=== PATIENT | female | born 1985 | race Caucasian/White ===

== ENCOUNTER 2017-12-04 19:32 | Inpatient (IN) ==
[2017-12-04] MEDS ORDERED: Ondansetron 4 MG/2 ML VIAL IVP ONE (20:25)
[2017-12-04] MEDS ORDERED: 0.9 % Sodium Chloride 1,000 ML IVC ONE ×2 (20:25→21:34)
--- NOTE | 2017-12-04 20:27 | Emergency Department Note ---
Disposition Clinical Impression: Pyelonephritis Disposition: Admitted As Inpatient Condition: Fair Time of Disposition: 22:00 General Adult HPI - General Chief complaint: ED Fever Stated complaint: fever, vomiting, side pain, headache Time Seen by Provider: 12/04/17 20:15 Source: patient Nursing Notes Reviewed: Yes Vital Signs Reviewed: Yes - History of Present Illness HPI Narrative: Ms Quigley started her period last which is 6 days ago. The next day she had some abdominal cramping on the right especially radiating up through her flank area and some nausea and began throwing up. She has done so numerous times over the weekend. Today she threw up about 6 times just before coming to the emergency department and still feels nauseated now. Regarding her urination she tells me that it has hurt to urinate and has done so for about 5 days now. She is also complaining of a headache especially when she vomits. She has had a couple of migraines in the past and these are similar but have not lasted quite as long. Some photophobia and nausea attributed to headache. She has had some cyclical vomiting issues especially when she was . This persisted and when she was not and her gallbladder was taken out in hopes that this would help her but it did not seem to. Pain Scale: 5 - Related Data Previous Rx's Medication Instructions Recorded Sulfamethoxazole/Trimeth DS 1 each PO BID #20 tablet 11/07/16 [Bactrim DS] cephALEXin [Keflex] 500 mg PO BID #20 capsule 11/07/16 Nitrofurantoin Monohyd/M-Cryst 100 mg PO BID #20 capsule 06/03/17 [Macrobid 100 mg Capsule] Ondansetron ODT [Zofran ODT] 4 mg SL Q8HR PRN #14 tab.rapdis 06/03/17 Allergies Allergy/AdvReac Type Severity Reaction Status Date / Time promethazine [From Phenergan] AdvReac Mild See Verified 06/25/16 23:36 Comments Penicillins [PCN] AdvReac See Verified 06/25/16 23:36 Comments Constitutional: Reports: fever, chills Eyes: Reports: as per HPI ENT ED: Denies: congestion Cardiovascular: Denies: dyspnea on exertion Respiratory: Denies: cough Gastrointestinal: Reports: abdominal pain, nausea, vomiting Genitourinary: Reports: dysuria Musculoskeletal: Reports: back pain Integumentary: Denies: rash Neurological: Reports: headache Endocrine: Reports: fatigue Past Medical History - Past Medical History Medical history: Reports: no medical history Psychiatric history: Reports: no psych history [employer]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 Absent: scleral icterus - ENT ENT exam: mucous membranes dry - Neck Neck exam: Present: normal inspection, full ROM. Absent: meningismus - Chest Chest inspection: Present: normal inspection, symmetric chest wall rise - Respiratory Respiratory exam: Present: normal lung sounds bilaterally. Absent: respiratory distress, wheezes, stridor - Cardiovascular Cardiovascular exam: Present: tachycardia, normal heart sounds. Absent: systolic murmur, diastolic murmur - Abdominal Exam Abdominal exam: Present: soft, normal bowel sounds. Absent: distention, guarding, rebound, rigidity Abdominal tenderness: Present: RUQ, RLQ, moderate - Extremities Exam Extremities exam: Present: normal inspection, normal capillary refill (Sluggish) . Absent: pedal edema - Back Exam Back exam: Present: CVA tenderness (R). Absent: CVA tenderness (L) - Neurological Exam Neurological exam: Present: alert - Psychiatric Psychiatric exam: Present: normal affect, normal mood - Skin Skin exam: Present: warm, dry. Absent: rash Course Vital Signs Temperature 100 F H 12/04/17 19:53 Pulse Rate 142 12/04/17 19:53 Respiratory Rate 20 12/04/17 19:53 Blood Pressure 113/79 12/04/17 19:53 O2 Sat by Pulse Oximetry 100 12/04/17 19:53 Temperature 100 F H 12/04/17 19:53 Pulse Rate 139 12/04/17 23:11 Respiratory Rate 20 12/04/17 22:38 Blood Pressure 98/60 12/04/17 23:11 O2 Sat by Pulse Oximetry 100 12/04/17 23:11 Oxygen Delivery Oxygen Delivery Room Air Medical Decision Making - MDM Narrative Medical decision making narrative: Pyelonephritis. This is the most likely explanation for her symptoms. She was given IV fluids, IV Rocephin and Zofran. K rider was completed just before transfer to the floor. She reported that her nausea was somewhat better. After IV Toradol was given she did report some relief of her headache. Just prior to transfer to the floor the second liter finished and she still did not need to urinate a second time. We will hang a third liter and when she urinates we will decrease to the 150 ML's as per the admission orders. I spoke with floor nurse will be taking care of Ms. Lobato. Because of her tachycardia persistent nausea it would be most prudent to have Ms. Lobato here in the hospital at least overnight. She does have some evidence of systemic infection but I do not believe she is frankly septic. Lactate was not elevated. Abnormality in vital signs mostly attributable to dehydration. I spoke with the covering hospitalist and presented the case. He accepted admission. She is awake alert and in no visible distress in slightly improved condition just prior to transfer to the floor. - Medical Records Medical records reviewed: Yes I reviewed the patient's medical records. - Lab Data Lab results reviewed: Yes I reviewed the patient's lab results. Result diagrams: 12/04/17 20:44 12/04/17 20:44 Lab Results 12/04/17 12/04/17 12/04/17 Range/Units 20:44 20:44 20:44 WBC 17.7 H (4.3-11.1) K/mcL RBC 4.01 (3.82-4.97) M/mcL Hgb 12.6 (11.5-15.4) g/dL Hct 36.2 (35.3-44.9) % MCV 90.3 (83.0-100.0) fL MCH 31.4 (28.0-33.3) pg MCHC 34.8 (31.6-35.5) g/dL RDW 12.5 (11.5-14.5) % Plt Count 196 (140-400) K/mcL MPV 10.5 (9.4-12.4) fL Immature Gran % 2.8 (0-4) % Seg Neutrophils % 89.8 % Lymphocytes % 3.9 % Monocytes % 3.4 % Eosinophils % 0.0 % Basophils % 0.1 % Neutrophils # 15.9 H (1.6-8.9) K/mcL Lymphocytes # 0.7 (0.6-4.6) K/mcL Monocytes # 0.6 (0.0-1.3) K/mcL Eosinophils # 0.0 (0.0-0.6) K/mcL Basophils # 0.0 (0.0-0.2) K/mcL VBG pH (7.32-7.42) pH Units VBG pCO2 (41-51) mmHg VBG pO2 (25-50) mmHg VBG HCO3 (21-27) mEq/L Sodium 137 (136-145) mEq/L Potassium 3.2 L (3.5-5.1) mEq/L Chloride 102 (98-107) mEq/L Carbon Dioxide 26 (23-29) mEq/L BUN 14 (6-20) mg/dL Creatinine 1.04 (0.60-1.20) mg/dL Est GFR ( Amer) > 60 (> 60) Est GFR (Non-Af Amer) > 60 (> 60) BUN/Creatinine Ratio 13 (6-26) Glucose 99 (70-105) mg/dL Calculated Osmolality 285 (280-300) Lactic Acid (0.5-2.2) mmol/L Calcium 9.4 (8.6-10.3) mg/dL Total Bilirubin 0.6 (0.3-1.0) mg/dL Direct Bilirubin (0.0-0.2) mg/dL Indirect Bilirubin (0.0-1.2) mg/dL AST 25 (13-39) Units/L ALT 24 (7-52) Units/L Alkaline Phosphatase 98 (34-104) Units/L Serum Total Protein 6.7 (6.4-8.9) g/dL Albumin 3.6 (3.5-5.7) g/dL Globulin 3.1 (2.4-3.5) g/dL Albumin/Globulin Ratio 1.2 (1.1-2.2) Lipase (11-82) Units/L TSH (0.340-5.600) mcIU/mL Urine Color Yellow (Yellow) Urine Clarity Clear (Clear) Urine pH 6.0 (5.0-8.0) pH Units Ur Specific [place] 1.020 (1.010-1.025) Urine Protein >=300 H (Neg-Trace) mg/dL Urine Glucose (UA) Normal (Normal) mg/dL Urine Ketones Negative (Negative) mg/dL Urine Blood Moderate H (Negative) Urine Nitrite Negative (Negative) Urine Bilirubin Small H (Negative) Urine Urobilinogen Normal (Normal) mg/dL Ur Leukocyte Esterase Small H (Negative) Urine Microscopic RBC 0-3 (0-3) per hpf Urine Microscopic WBC TNTC H (0-3) per hpf Ur Squamous Epith Cells Few (None-Few) per lpf Urine Bacteria Many H (None-Few) per hpf Hyaline Casts Few (None-Few) per lpf Urine Test (Negative) 12/04/17 12/04/17 12/04/17 Range/Units 20:44 20:44 20:44 WBC (4.3-11.1) K/mcL RBC (3.82-4.97) M/mcL Hgb (11.5-15.4) g/dL Hct (35.3-44.9) % MCV (83.0-100.0) fL MCH (28.0-33.3) pg MCHC (31.6-35.5) g/dL RDW (11.5-14.5) % Plt Count (140-400) K/mcL MPV (9.4-12.4) fL Immature Gran % (0-4) % Seg Neutrophils % % Lymphocytes % % Monocytes % % Eosinophils % % Basophils % % Neutrophils # (1.6-8.9) K/mcL Lymphocytes # (0.6-4.6) K/mcL Monocytes # (0.0-1.3) K/mcL Eosinophils # (0.0-0.6) K/mcL Basophils # (0.0-0.2) K/mcL VBG pH (7.32-7.42) pH Units VBG pCO2 (41-51) mmHg VBG pO2 (25-50) mmHg VBG HCO3 (21-27) mEq/L Sodium (136-145) mEq/L Potassium (3.5-5.1) mEq/L Chloride (98-107) mEq/L Carbon Dioxide (23-29) mEq/L BUN (6-20) mg/dL Creatinine (0.60-1.20) mg/dL Est GFR ( Amer) (> 60) Est GFR (Non-Af Amer) (> 60) BUN/Creatinine Ratio (6-26) Glucose (70-105) mg/dL Calculated Osmolality (280-300) Lactic Acid (0.5-2.2) mmol/L Calcium (8.6-10.3) mg/dL Total Bilirubin 0.6 (0.3-1.0) mg/dL Direct Bilirubin 0.2 (0.0-0.2) mg/dL Indirect Bilirubin 0.4 (0.0-1.2) mg/dL AST 25 (13-39) Units/L ALT 24 (7-52) Units/L Alkaline Phosphatase 98 (34-104) Units/L Serum Total Protein 6.7 (6.4-8.9) g/dL Albumin 3.6 (3.5-5.7) g/dL Globulin 3.1 (2.4-3.5) g/dL Albumin/Globulin Ratio 1.2 (1.1-2.2) Lipase < 3 L (11-82) Units/L TSH (0.340-5.600) mcIU/mL Urine Color (Yellow) Urine Clarity (Clear) Urine pH (5.0-8.0) pH Units Ur Specific [place] (1.010-1.025) Urine Protein (Neg-Trace) mg/dL Urine Glucose (UA) (Normal) mg/dL Urine Ketones (Negative) mg/dL Urine Blood (Negative) Urine Nitrite (Negative) Urine Bilirubin (Negative) Urine Urobilinogen (Normal) mg/dL Ur Leukocyte Esterase (Negative) Urine Microscopic RBC (0-3) per hpf Urine Microscopic WBC (0-3) per hpf Ur Squamous Epith Cells (None-Few) per lpf Urine Bacteria (None-Few) per hpf Hyaline Casts (None-Few) per lpf Urine Test Negative (Negative) 12/04/17 12/04/17 12/04/17 Range/Units 20:44 20:44 21:06 WBC (4.3-11.1) K/mcL RBC (3.82-4.97) M/mcL Hgb (11.5-15.4) g/dL Hct (35.3-44.9) % MCV (83.0-100.0) fL MCH (28.0-33.3) pg MCHC (31.6-35.5) g/dL RDW (11.5-14.5) % Plt Count (140-400) K/mcL MPV (9.4-12.4) fL Immature Gran % (0-4) % Seg Neutrophils % % Lymphocytes % % Monocytes % % Eosinophils % % Basophils % % Neutrophils # (1.6-8.9) K/mcL Lymphocytes # (0.6-4.6) K/mcL Monocytes # (0.0-1.3) K/mcL Eosinophils # (0.0-0.6) K/mcL Basophils # (0.0-0.2) K/mcL VBG pH 7.42 (7.32-7.42) pH Units VBG pCO2 40 L (41-51) mmHg VBG pO2 23 L (25-50) mmHg VBG HCO3 26 (21-27) mEq/L Sodium (136-145) mEq/L Potassium (3.5-5.1) mEq/L Chloride (98-107) mEq/L Carbon Dioxide (23-29) mEq/L BUN (6-20) mg/dL Creatinine (0.60-1.20) mg/dL Est GFR ( Amer) (> 60) Est GFR (Non-Af Amer) (> 60) BUN/Creatinine Ratio (6-26) Glucose (70-105) mg/dL Calculated Osmolality (280-300) Lactic Acid 1.4 (0.5-2.2) mmol/L Calcium (8.6-10.3) mg/dL Total Bilirubin (0.3-1.0) mg/dL Direct Bilirubin (0.0-0.2) mg/dL Indirect Bilirubin (0.0-1.2) mg/dL AST (13-39) Units/L ALT (7-52) Units/L Alkaline Phosphatase (34-104) Units/L Serum Total Protein (6.4-8.9) g/dL Albumin (3.5-5.7) g/dL Globulin (2.4-3.5) g/dL Albumin/Globulin Ratio (1.1-2.2) Lipase (11-82) Units/L TSH 0.505 (0.340-5.600) mcIU/mL Urine Color (Yellow) Urine Clarity (Clear) Urine pH (5.0-8.0) pH Units Ur Specific [place] (1.010-1.025) Urine Protein (Neg-Trace) mg/dL Urine Glucose (UA) (Normal) mg/dL Urine Ketones (Negative) mg/dL Urine Blood (Negative) Urine Nitrite (Negative) Urine Bilirubin (Negative) Urine Urobilinogen (Normal) mg/dL Ur Leukocyte Esterase (Negative) Urine Microscopic RBC (0-3) per hpf Urine Microscopic WBC (0-3) per hpf Ur Squamous Epith Cells (None-Few) per lpf Urine Bacteria (None-Few) per hpf Hyaline Casts (None-Few) per lpf Urine Test (Negative)
[2017-12-04 20:50] LABS: Basophils % 0.1 %; Hematocrit 36.2 % (35.3-44.9); Hemoglobin 12.6 g/dL (11.5-15.4); Immature Granulocytes % 2.8 % (0-4); Lymphocytes # 0.7 K/mcL (0.6-4.6); Lymphocytes % 3.9 %; Mean Corpuscular HGB Conc 34.8 g/dL (31.6-35.5); Mean Corpuscular Hemoglobin 31.4 pg (28.0-33.3); Mean Corpuscular Volume 90.3 fL (83.0-100.0); Mean Platelet Volume 10.5 fL (9.4-12.4); Monocytes # 0.6 K/mcL (0.0-1.3); Monocytes % 3.4 %; Neutrophils # 15.9 K/mcL (1.6-8.9); Platelet Count 196 K/mcL (140-400); Red Blood Count 4.01 M/mcL (3.82-4.97); Red Cell Distribution Width 12.5 % (11.5-14.5); Segmented Neutrophils % 89.8 %
[2017-12-04 21:07] LABS: Bilirubin,Urine Small (Negative); Blood,Urine Moderate (Negative); Clarity,Urine Clear (Clear); Color,Urine Yellow (Yellow); Glucose,Urine (UA) Normal (Normal); Ketones,Urine Negative (Negative); Leukocyte Esterase,Urine Small (Negative); Nitrite,Urine Negative (Negative); Protein,Urine >=300 mg/dL (Neg-Trace); Urobilinogen,Urine Normal (Normal)
[2017-12-04 21:09] LABS: Alanine Aminotransferase 24 Units/L (7-52); Albumin 3.6 g/dL (3.5-5.7); Albumin/Globulin Ratio 1.2 (1.1-2.2); Alkaline Phosphatase 98 Units/L (34-104); Aspartate Amino Transferase 25 Units/L (13-39); BUN/Creatinine Ratio 13 (6-26); Bilirubin,Total 0.6 mg/dL (0.3-1.0); Blood Urea Nitrogen 14 mg/dL (6-20); Calcium 9.4 mg/dL (8.6-10.3); Carbon Dioxide 26 mEq/L (23-29); Chloride 102 mEq/L (98-107); Globulin 3.1 g/dL (2.4-3.5); Glucose 99 mg/dL (70-105); Osmolality,Calculated 285 (280-300); Potassium 3.2 mEq/L (3.5-5.1); Sodium 137 mEq/L (136-145); Total Protein 6.7 g/dL (6.4-8.9); eGFR For African Americans > 60 (> 60); eGFR For Non-African Americans > 60 (> 60)
[2017-12-04 21:10] LABS: Albumin 3.6 g/dL (3.5-5.7); Albumin/Globulin Ratio 1.2 (1.1-2.2); Bilirubin,Direct 0.2 mg/dL (0.0-0.2); Bilirubin,Indirect 0.4 mg/dL (0.0-1.2); Bilirubin,Total 0.6 mg/dL (0.3-1.0); Globulin 3.1 g/dL (2.4-3.5); Total Protein 6.7 g/dL (6.4-8.9)
[2017-12-04 21:15] LABS: Bacteria,Urine Many per hpf (None-Few); Hyaline Casts,Urine Few per lpf (None-Few); RBC,Urine 0-3 per hpf (0-3); Squamous Epithelial Cell,Urine Few per lpf (None-Few); WBC,Urine TNTC per hpf (0-3)
[2017-12-04 21:27] LABS: VBG HCO3 26 mEq/L (21-27); VBG PCO2 40 mmHg (41-51); VBG PH 7.42 pH Units (7.32-7.42); VBG PO2 23 mmHg (25-50)
[2017-12-04] MEDS ORDERED: cefTRIAXone 1,000 MG in Water for inj. (sterile) 20 ML 10 ML IVPB ONE (21:30)
[2017-12-04] MEDS ORDERED: Ketorolac 30 MG/ML VIAL IVP ONE (22:24)
[2017-12-04] MEDS ORDERED: Ketorolac 30 MG/ML VIAL IVP PRN (23:39)
[2017-12-04] MEDS ORDERED: Naloxone 0.4 MG/ML INJ IVP PRN (23:39)
[2017-12-04] MEDS ORDERED: cefTRIAXone 1,000 MG in Water for inj. (sterile) 20 ML 10 ML IVPB SCH (23:45)
[2017-12-04] MEDS ORDERED: 0.9 % Sodium Chloride 1,000 ML IVC SCH (23:45)
[2017-12-05] MEDS ORDERED: 0.9 % Sodium Chloride 1,000 ML IVC ONE ×2 (00:23→03:58)
[2017-12-05 05:23] LABS: Basophils % 0.1 %; Hematocrit 30.9 % (35.3-44.9); Hemoglobin 10.5 g/dL (11.5-15.4); Lymphocytes # 0.9 K/mcL (0.6-4.6); Mean Corpuscular Hemoglobin 31.3 pg (28.0-33.3); Mean Corpuscular Volume 92.2 fL (83.0-100.0); Mean Platelet Volume 10.2 fL (9.4-12.4); Monocytes # 1.8 K/mcL (0.0-1.3); Monocytes % 10.1 %; Neutrophils # 13.6 K/mcL (1.6-8.9); Platelet Count 155 K/mcL (140-400); Red Blood Count 3.35 M/mcL (3.82-4.97); Red Cell Distribution Width 12.7 % (11.5-14.5); Segmented Neutrophils % 75.8 %
[2017-12-05] MEDS: Meropenem 1,000 MG in 0.9 % Sodium Chloride Mini Bag 100 ML IVPB SCH ×2 (05:23→14:07)
[2017-12-05 05:43] LABS: BUN/Creatinine Ratio 14 (6-26); Blood Urea Nitrogen 14 mg/dL (6-20); Calcium 7.3 mg/dL (8.6-10.3); Carbon Dioxide 21 mEq/L (23-29); Chloride 111 mEq/L (98-107); Glucose 112 mg/dL (70-105); Osmolality,Calculated 289 (280-300); Sodium 139 mEq/L (136-145); eGFR For African Americans > 60 (> 60); eGFR For Non-African Americans > 60 (> 60)
[2017-12-05] MEDS ORDERED: 0.9 % Sodium Chloride 500 ML IVC ONE (07:06)
[2017-12-05] MEDS: Ondansetron 4 MG/2 ML VIAL IVP PRN ×2 (09:11→15:18)
[2017-12-05] MEDS ORDERED: Acetaminophen 325 MG TABLET PO PRN (09:52)
[2017-12-05] MEDS ORDERED: 0.9 % Sodium Chloride 500 ML IVC SCH (10:15)
[2017-12-05] MEDS: 0.9 % Sodium Chloride 1,000 ML IVC SCH ×2 (10:18→13:29)
[2017-12-05] MEDS ORDERED: *HR* HYDROcodone/Acet 5/325 mg TABLET PO PRN (11:19)
--- NOTE | 2017-12-05 12:59 | Internal Med History&Physical ---
Date of Encounter: 12/05/17 Time of Encounter: 12:57 Assessment and Plan (1) Pyelonephritis Current visit: Yes Status: Acute Continue IV antibiotics. Will monitor. Will repeat CBC in the morning (2) Dehydration Current visit: Yes Status: Acute Continue IV fluids. Continue Zofran for nausea to prevent vomiting. Will monitor labs. Internal Medicine - H&P: HPI Admitted From: Emergency Dept Plans for Post Hospital Care: Home History of present illness: Ms. Quigley is a 32 year old female which presented to the ER last night with a 6 day history of vomiting and right-sided flank pain. Patient states she has not been able to hold much food or fluid down since last Saturday. States she has had a slight fever and chills. Reports one very small episode of diarrhea this morning. Complains of headache. Denies shortness of breath. Was started on IV antibiotics and fluids and continues to run a low-grade fever. Blood pressure stabilizing at 95/61. CT of abdomen reports enlarged right kidney. CT of head is negative. Has been able to hold down clear liquids so far today. Taking Zofran for nausea. Past Med Surg Social Fam HX - Past Medical History Medical history: no medical history Psychiatric history: no psych history - Past Surgical History Surgical History: cholecystectomy - Social History Smoking Status: Current every day smoker Packs per day: 0.5 Smokeless Tobacco Status: No Alcohol use: none, occasionally Drug use: marijuana - Family History Mother Adopted: [place]: Maribell Quigley Age: 73 Family Member Ethnicity: Non- Living Status: Still Living Hx Family Cardiac Disorders: Yes Hx Family Respiratory Disorders: Yes Hx Family Cancer: Yes Hx Family GI Disorders: No Hx Family Genitourinary Disorders: Yes Hx Family Endocrine Disorder: No Hx Family Musculoskeletal Disorders: No Hx Family Neuromuscular Disorders: No Hx Family Neurologic Disorders: No Hx Family HEENT Disorders: No Hx Family Autoimmune Disorders: No Hx Family Reproductive Disorders: No Hx Family Psychosocial Disorders: No Hx Family Medical Disorders: No Internal Medicine - H&P: Meds Ibuprofen [Motrin] 600 mg PO Q8HR PRN 12/05/17 [History] Meloxicam [Mobic] 12/05/17 [History] 3 Allergy/AdvReac Type Severity Reaction Status Date / Time promethazine [From Phenergan] AdvReac Mild See Verified 06/25/16 23:36 Comments Penicillins [PCN] AdvReac See Verified 06/25/16 23:36 Comments All Systems PM: A 10-system review of systems was performed and is negative for pertinent findings except as documented above in the HPI. - Constitutional Constitutional: chills, fatigue, fever(s), weakness, no night sweats - EENT Eyes: no change in vision, no discharge, no pain, no photophobia Ears: no ear discharge, no ear pain, no tinnitus Nose, mouth and throat: no dysphagia, no nasal discharge, no neck pain, no sore throat - Cardiovascular Cardiovascular ROS IM: no chest pain, no diaphoresis, no dyspnea, no lightheadedness, no palpitations, no syncope - Respiratory Respiratory: no cough, no dyspnea, no wheezing, no excessive phlegm production - Gastrointestinal Gastrointestinal: diarrhea, nausea, vomiting, no abdominal pain, no hematemesis , no hematochezia, no melena - Genitourinary Genitourinary: flank pain, no change in urinary stream, no dysuria, no hematuria Additional comments: Reports right-sided flank pain. Denies any other urinary symptoms such as hematuria, dysuria or urgency or frequency. - Musculoskeletal Musculoskeletal ROS IM: no numbness, no tingling - Integumentary Integumentary IM: no rash, no unusual bruising - Neurological Neurological ROS: no confusion, no convulsions, no focal weakness, no numbness, no tingling, no tremor(s) - Hematologic/Lymphatic Hematologic/Lymphatic: no easy bruising - Constitutional Vitals: Temp Pulse Resp BP Pulse Ox 98.7 F 105 16 95/61 92 12/05/17 12:09 12/05/17 12:09 12/05/17 12:09 12/05/17 12:09 12/05/17 12:09 General appearance: Present: A&O X 3, pleasant, no acute distress, answers questions appropriately - Head Head exam: Present: atraumatic, normocephalic - Eye Eye exam: Present: PERRL, conjuntiva pink, sclera anicteric Pupils: Present: PERRL - Neck Neck exam general surgery: Present: supple, trachea midline. Absent: lymphadenopathy - Respiratory Respiratory exam: Present: CTAB. Absent: accessory muscle use, rales, rhonchi, wheezes - Cardiovascular Cardiovascular exam: Present: RRR, +S1, +S2. Absent: diastolic murmur, gallop, rubs, systolic murmur - GI/Abdominal GI/Abdominal exam: Present: normal bowel sounds, soft, no peritoneal signs. Absent: distended, tenderness - Extremities Exam Extremities exam: Present: warm, radial pulses palpable and symmetrical. Absent : calf tenderness, cyanotic, pedal edema - Neurological Exam Neurological exam: Present: CN II-XII intact, oriented X3, no focal deficits. Absent: pronater drift, facial droop, speech deficit - Skin Skin exam: Present: dry, intact Internal Med - H&P Results - Labs CBC & Chem 7: 12/05/17 05:15 12/05/17 05:15 Labs: Short CBC 12/05/17 Range/Units 05:15 WBC 17.9 H (4.3-11.1) K/mcL Hgb 10.5 L D (11.5-15.4) g/dL Hct 30.9 L (35.3-44.9) % Plt Count 155 (140-400) K/mcL Neutrophils # 13.6 H (1.6-8.9) K/mcL BMP 12/05/17 05:15 Sodium 139 Potassium 4.0 Chloride 111 H Carbon Dioxide 21 L BUN 14 Creatinine 1.01 Glucose 112 H Calcium 7.3 L - Impressions ITS Impressions Abdomen/Pelvis CT 12/05/17 04:30 IMPRESSION: Enlarged, edematous right kidney with moderate perinephric fluid and small volume ascites tracking into the pelvis. Findings suspicious for infection. No obstructing calculus is visualized. If symptoms persist, consider evaluation with contrast. Focus of gas within the bladder is likely due to recent catheterization. Bladder is otherwise unremarkable in appearance. D/ / Faustino Obrien MD / Faustino Obrien MD Interpreting Provider: Faustino Obrien MD Head CT 12/05/17 09:48 IMPRESSION: No acute intracranial abnormality. Paranasal sinus disease as above. D/ / 12/05/2017 10:14:14 Gareth Costa MD / alexsandra Interpreting Provider: Graeth Costa MD - VTE Documentation of Mechanical Device: Graduated compression elastic hosiery
[2017-12-05 13:44] LABS: Hematocrit 29.1 % (35.3-44.9); Mean Corpuscular HGB Conc 34.4 g/dL (31.6-35.5); Mean Corpuscular Hemoglobin 31.3 pg (28.0-33.3); Mean Corpuscular Volume 90.9 fL (83.0-100.0); Mean Platelet Volume 10.5 fL (9.4-12.4); Platelet Count 165 K/mcL (140-400); Red Cell Distribution Width 12.9 % (11.5-14.5)
[2017-12-05 14:00] LABS: BUN/Creatinine Ratio 18 (6-26); Blood Urea Nitrogen 17 mg/dL (6-20); Calcium 7.2 mg/dL (8.6-10.3); Carbon Dioxide 18 mEq/L (23-29); Chloride 114 mEq/L (98-107); Glucose 118 mg/dL (70-105); Osmolality,Calculated 291 (280-300); Potassium 3.5 mEq/L (3.5-5.1); Sodium 139 mEq/L (136-145); eGFR For African Americans > 60 (> 60); eGFR For Non-African Americans > 60 (> 60)
[2017-12-05 15:11] VITALS: BP 100/70
--- NOTE | 2017-12-05 15:59 | Discharge Summary ---
Orders not resulted at time of discharge: Pending orders 12/06/17 04:00 CBC [Complete Blood Count] [HEME] AM 0400 CMP [Comprehensive Metabolic Panel] AM 0400 Urine culture sensitivity pending. Date of Encounter: 12/05/17 Time of Encounter: 15:33 - Discharge Diagnosis (1) Pyelonephritis Priority: Primary Status: Acute (2) Dehydration Priority: Secondary Status: Acute Hospital course: Ms. Quigley is a 32 year old female with a 5-6 day history of nausea and vomiting. She began her menses on 11/28/2017. She had some lower abdominal pain which she thought was related but this localized more to her right lower quadrant and flank, over time. Somewhere around that day or the next day she developed nausea and this became vomiting. It caused her to miss one day of work and she returned to work, with worsening of abdominal pain and nausea, after that she was unable to return to work at all. She states that she was unable to keep anything down for more than 2 hours. She had no change in bowel movements, no chills but had a fever intermittently to a maximum of 102.6. Throughout this time, she developed a migraine headache with photophobia that "was the worst one she ever had." This progressively worsened and persists into this morning. She had no urinary symptoms other than she stopped urinating over the last couple of days before presentation to the emergency room. Yesterday, she became weak, fatigued, had persistent nausea and vomiting, worsening right flank and right lower quadrant abdominal pain, malaise and fatigue. For this reason, she presented to a [facility] [place] emergency department. There, she was found to have too numerous to count white cells and seem to be dehydrated. She was initially given a dose of Rocephin in the emergency room, was hydrated with IV normal saline, and was admitted for observation. She had a CT of the abdomen and pelvis which showed no appendix side this but enlargement of her kidney without stone or localized loculation such as abscess or obstruction. Review of systems is significant for ongoing nausea with almost any illness or sickness. She had extensive hyperemesis gravidarum in the past. She had a recent wrist injection in the right medial, ulnar, area and she questions whether this could have caused kidney problems. I told her I doubted this very much. Patient has no complaint of chest discomfort, dyspnea, orthopnea, palpitations, nausea or vomiting, constipation or diarrhea, other changes in bowel habits, difficulty with urination, rash or itching, or other new complaints, except as mentioned above. Review of systems is otherwise unremarkable. My examination this morning: She had hypotension throughout the night, even though receiving multiple boluses of IVs saline. Because of continued pain along with hypotension to a minimum of 82 systolic, she was supported, and her antibiotics had been changed to meropenem, along with increasing IV fluids. At approximately 9:30 this morning her mucus score was 5. Later in the morning, this lowered to 4. Overnight, here, she has developed diarrhea although no change in color. As today has progressed, she has worsening of upper abdominal and left upper quadrant abdominal discomfort. She complains this afternoon of abdominal bloating. As noted above, persistent and worsening headache prompted a CT scan which was without acute or chronic change. Follow-up labs showed no lactic acidosis but worsening CO2. This, in the face of hydration with more than 6 L of saline and persistent hypotension prompted transfer to an advanced level of care. I explained her need for further observation and possible urological consultation given her persistent symptoms, hypotension, concern about an abscess equivalent at her kidney with possible need for percutaneous drainage. She accepts and agrees to transfer to [facility]. I explained that this might simply be a kidney infection with severe dehydration but that if we were wrong in her infection worsened, we will feel badly for not having initiated transfer earlier. She expresses understanding. Transfer and transportation to [facility] was arranged. She continues on IV normal saline at 250 mL per hour. If blood pressure remains stable, we recommend that this be curtailed to avoid volume overload. Since her admission here she has made only 450 mL's of urine which is so dark as to be tea-colored. - Time Spent with Patient Total time spent providing and/or coordinating discharge services: - Discharge Medications Home Medications: Ibuprofen [Motrin] 600 mg PO Q8HR PRN 12/05/17 [History] Meloxicam [Mobic] 12/05/17 [History] Allergies/Adverse Reactions: 3 Allergy/AdvReac Type Severity Reaction Status Date / Time promethazine [From Phenergan] AdvReac Mild See Verified 06/25/16 23:36 Comments Penicillins [PCN] AdvReac See Verified 06/25/16 23:36 Comments Date of admission: 12/04/17 22:59 Primary care physician: Radha Plunkett CNP Discharging clinician: Thor Gill Anticipated date of discharge: 12/05/17 - Constitutional Vitals: Temp Pulse Resp BP Pulse Ox 98.0 F 105 16 100/70 94 12/05/17 15:00 12/05/17 15:00 12/05/17 15:00 12/05/17 15:00 12/05/17 15:00 General appearance: Present: A&O X 3, pleasant, no acute distress, answers questions appropriately Exam: Examination: (Except as mentioned above): General: In no apparent distress, alert and oriented 3. However, appears ill, fatigued. Head: Atraumatic and normocephalic. Eyes: Extraocular muscles are intact, pupils equal round and reactive to light and accommodation. Sclerae anicteric. Ears: External ears are normal to inspection and hearing is grossly normal. Nose: Patent without lesion noted. Mouth: No intraoral lesions seen. Dentition is unremarkable. Neck: Supple with trachea midline. There is no thyromegaly or adenopathy and carotids are 2+ without bruit heard. No nuchal rigidity. Respiratory: No use of accessory muscles. Lungs are clear throughout. Normal airflow. Cardiovascular: Regular rate and rhythm without murmur appreciated. Abdomen: Bowel sounds are normal. No hepatosplenomegaly but right lower quadrant, right flank, right CVA are markedly tender to palpation and percussion. She has no left CVA tenderness. There is no guarding or rebound. (Addendum: Later in the day, she developed upper abdominal and left upper quadrant tenderness, as above) Extremities: No cyanosis clubbing or edema. Neurological: A and O 3. Cranial nerves II through XII are intact. No focal deficits and no abnormal movements or postures. Skin: Warm but slightly diaphoretic with no lesions noted. Multiple tattoos. Breasts, pelvic and rectal: Not examined. - Patient Status Disposition: Transfer Short-Term Hosp Condition: Fair - Discharge Instructions Follow Up With: Radha Plunkett CNP [Primary Care Provider] - - VTE Documentation of Mechanical Device: Graduated compression elastic hosiery
[2017-12-05] MEDS ORDERED: *HR* Heparin 5,000 UNIT/ML VIAL SQ SCH (18:00)
[2017-12-05 20:01] LABS: Acinetobacter baumannii by PCR Not Detected (Not Detect); Enterococcus by PCR Not Detected (Not Detect); Staphylococcus aureus by PCR Not Detected (Not Detect); Streptococcus agalactiae(B)PCR Not Detected (Not Detect); Streptococcus by PCR Not Detected (Not Detect); Streptococcus pneumoniae PCR Not Detected (Not Detect); Streptococcus pyogenes (A) PCR Not Detected (Not Detect); blaKPC Carbapenem-Resist Gene Not Detected (Not Detect); mecA Methicillin-Resist Gene Not Detected (Not Detect); vanA/B Vancomycin-Resist Genes Not Detected (Not Detect)
[2017-12-05 20:02] LABS: Candida albicans by PCR Not Detected (Not Detect); Candida glabrata by PCR Not Detected (Not Detect); Candida krusei by PCR Not Detected (Not Detect); Candida parapsilosis by PCR Not Detected (Not Detect); Candida tropicalis by PCR Not Detected (Not Detect); Escherichia coli by PCR ***DETECTED*** (Not Detect); Klebsiella oxytoca by PCR Not Detected (Not Detect); Klebsiella pneumoniae by PCR Not Detected (Not Detect); Pseudomonas aeruginosa by PCR Not Detected (Not Detect); Serratia marcescens by PCR Not Detected (Not Detect)
== END 2017-12-05 16:00 | disposition short-term general hospital (02) | DRG 463 ==
LOC: INPGRE 19:32 → EMEROOGRE 19:32 → INPGRE 12-05 00:23